=== PATIENT | female | born 1985 | race Caucasian/White ===

== ENCOUNTER 2024-06-02 10:58 | Emergency (ER) | payer BC, SELFPAY ==
[2024-06-02 11:04] VITALS: BP 112/64
[2024-06-02 12:14] VITALS: BMI 25.6
[2024-06-02 12:16] VITALS: BP 107/56
[2024-06-02 12:43] LABS: Hematocrit 31.1 % (37.0-47.0); Hemoglobin 11.3 g/dL (12.0-16.0); Mean Corp Hgb Conc. 36.3 g/dL (33.0-37.0); Mean Corpuscular Hgb 32.8 pg (27.0-31.0); Mean Corpuscular Volume 90.4 fL (81.0-99.0); Mean Platelet Volume 10.3 fL (7.4-10.4); Nucleated Red Blood Cells % 0 %; Platelet Count 142 10^3/uL (130-400); Red Blood Cell Count 3.44 10^6/uL (4.20-5.40); Red Cell Dist. Width 12.7 % (11.5-14.5); White Blood Cell Count 4.7 10^3/uL (4.8-10.8)
[2024-06-02 12:54] LABS: ALT (SGPT) 36 U/L (0-35); AST (SGOT) 41 U/L (14-36); Albumin 3.8 g/dl (3.5-5.0); Alkaline Phosphatase 59 U/L (38-126); Blood Urea Nitrogen 9 mg/dl (7-17); Calcium 8.7 mg/dl (8.4-10.2); Carbon Dioxide 22 mmol/L (22-30); Chloride 104 mmol/L (98-107); Estimated Creatinine Clearance 112 ml/min; Glucose 88 mg/dl (70-99); Potassium 3.8 mmol/L (3.5-5.1); Sodium 134 mmol/L (135-145); Total Bilirubin 0.3 mg/dl (0.2-1.3); Total Protein 6.4 g/dl (6.3-8.2); eGFR > 60.00
[2024-06-02] MEDS: NSS 1000 IV (13:01)
[2024-06-02] MEDS: BENADRYL 25 MG IV (13:02)
[2024-06-02] MEDS: REGLAN 10 MG IV (13:07)
[2024-06-02 13:31] LABS: COVID-19 Antigen Negative (Negative)
--- NOTE | 2024-06-02 13:45 | ED.GENMED ---
History of Present Illness
General
Chief Complaint: Headache
Source: patient
Time Seen by Provider: 06/02/24 12:25
History of Present Illness
History of Present Illness:
38-year-old female with past medical history of migraines presenting to the emergency department for evaluation of headache and generally feeling unwell since Tuesday of this past week. Patient states that symptoms seem to initially start as a
slight sore throat and she thought she was getting a mild viral infection but states symptoms did not seem to progress further with the cold. Headache then started to feel more like a tension type headache with pain in the frontal and posterior
portion of her scalp. She notes this feels different than her typical migraine which is usually right-sided and retro-orbital. She has been taking Tylenol and Benadryl with minimal to no relief. Patient does note that yesterday evening she had a
little bit of chills and also woke up around 4 AM feeling a little diaphoretic. Last dose of Tylenol was around 10 AM with minimal improvement. Patient was unaware of the low-grade fever that she had while in triage today and while back in her ER
room. No known sick contacts, recent travel or recent antibiotics. Of note patient is 13 weeks . She has already had her first trimester ultrasound with confirmed intrauterine .
Past History
Past History
ED Past Medical History: Other (Migraine headaches)
ED Past Surgical History: None
Social History
Tobacco: Non-smoker
Alcohol: None
Drug: None
Personal:
Living: with family
Employment: Employed
Review of Systems
Review of Systems
All Other Systems: ROS reviewed and negative except as documented in HPI and ROS
Phy Exam
Physical Exam
Physical Exam:
GENERAL: Alert , in no apparent distress
EYE: conjunctiva clear
NECK: Supple, no significant adenopathy.
ENT: o/p clr, mmm.
CARDIAC: Regular rate and rhythm
LUNGS: Clear breath sounds bilaterally, no acute respiratory distress, no wheezes/rales/rhonchi
NEUROLOGICAL: Alert and oriented
SKIN: Warm and dry, skin intact.
MUSCULOSKELETAL: well perfused.
PSYCH: Normal and appropriate interaction.
Scores
Heart Failure Risk
Heart Failure Risk Score: Not Applicable
Heart Score for Chest Pain Patients
STEMI patient?: Not applicable
Withdrawal Assessment of Alcohol
Withdrawal Assessment Completed?: Not applicable
Course
Orders/Labs/Results
Orders:
Orders
06/02/24 12:25
CMP [Comprehensive Metabolic Panel] Urgent
Complete Blood Count/With Diff Urgent
Manual Differential Urgent
Monotest Urgent
Comment: ADD ON
06/02/24 12:40
0.9% Sodium Chloride 1000 ml [Nss] 1,000 ml IV BOLUS
Diphenhydramine [Benadryl] 25 mg IV NOW STA
Metoclopramide [Reglan] 10 mg IV NOW STA
06/02/24 13:04
COVID-19 Antigen Urgent
Source: Nasal Swab
06/02/24 14:36
Acetaminophen 1000MG/100Ml [Ofirmev] 1,000 mg in 100 ml IV ONCE
Acetaminophen IV Indication:: ED Narcotic Naive Pt-ONCE
06/02/24 14:37
Add On- LAB Urgent
Tests Added?: monotest
Abnormal Lab Results
06/02/24
12:25
WBC 4.7 L 10^3/uL
(4.8-10.8)
RBC 3.44 L 10^6/uL
(4.20-5.40)
Hgb 11.3 L g/dL
(12.0-16.0)
Hct 31.1 L %
(37.0-47.0)
MCH 32.8 H pg
(27.0-31.0)
Band Neutrophils 7 H %
(0-3)
Sodium 134 L mmol/L
(135-145)
Creatinine 0.3 L mg/dL
(0.6-1.0)
AST 41 H U/L
(14-36)
ALT 36 H U/L
(0-35)
06/02/24 12:25
06/02/24 12:25
Vital Signs
Initial and Last Documented VS:
Initial Vital Signs
Temp Pulse Resp BP Pulse Ox
99.5 F 91 18 112/64 98
06/02/24 11:04 06/02/24 11:04 06/02/24 11:04 06/02/24 11:04 06/02/24 11:04
Last Documented Vital Signs
Temp Pulse Resp BP Pulse Ox
99.9 F 89 16 96/62 96
06/02/24 14:09 06/02/24 15:36 06/02/24 15:36 06/02/24 15:36 06/02/24 15:36
MDM/Problems Addressed
Differential Diagnosis Includes:
Viral syndrome, tension headache, migraine headache, no concern for preeclampsia/eclampsia given patient is at the beginning of her second trimester
MDM/Problems Addressed:
38-year-old female presenting to the emergency department for evaluation of persistent headache that has been constant since Tuesday. Unrelieved with her qxdg-tna-fgzpmbi Tylenol/Benadryl. Patient was given a prescription for Compazine by her
neurologist but yet to take this as she was concerned to take during . Low-grade fevers noted and I did repeat this while I was in room and it was 99.3 orally. Patient last took Tylenol around 10 AM so I do suspect that she likely did
have a fever earlier this morning. I suspect her symptoms are most likely related to a viral etiology. Will check labs and treat with fluids, Reglan, Benadryl and reassess following.
Chronic conditions affecting care: Neurological disorder (Migraine headache)
*Pulse Oximetry
Patient hypoxic: no
*Critical Care Note
Total Time (30-74mins, 75-104mins- exclusive of procedures): Not Applicable
Comment
Comment:
On reevaluation patient does note some mildly improved symptoms although headache still present. Given will order IV Ofirmev. She does have a mild leukopenia and very mild LFT elevation which likely signifies viral etiology. Monotest
added onto workup. COVID test noted to be negative. I still anticipate discharge home
Patient Management
Escalation/DeEscalation of care consider admission/obs:
Following Ofirmev patient notes that her symptoms are still present albeit improved from initial evaluation. Discussed other potential etiologies including a viral meningitis workup for this pain including lumbar puncture. I do not feel strongly
that this is the most likely diagnosis and patient declines lumbar puncture. Discussed return precautions to the ER as well as continued medications for relief at home. Again I reiterated to the patient that given her lab findings I am most
suspicious for a viral syndrome and that symptoms should likely be better in the coming days. Aware of return precautions. Patient is in agreement with this plan.
ED Attending Note
-
Portions of this chart may have been created with voice recognition software.� Occasional wrong word or��sound alike� substitutions may have occurred due to the inherent limitations of voice recognition software.
Discharge Plan
Departure
Patient Disposition: Home (Routine Discharge)
Date of Disposition: 06/02/24
Time of Disposition: 15:34
Patient with high blood pressure during this ER visit?: No
Discharge Problem:
Headache
Instructions: Headache, Adult (DC)
Prescriptions:
No Action
famotidine [Pepcid] 20 mg Tablet
20 mg PO BID
calcium carbonate 500 mg calcium (1,250 mg) Tablet,Chewable
500 mg PO BID PRN (Reason: heartburn)
prenat.vits,saud,qfk-hffz-fphit Tablet
1 tab PO DAILY
magnesium glycinate 100 mg Tablet
100 mg PO DAILY
Probiotic 3 billion cell Capsule
3,000 mmu cells PO DAILY
acetaminophen 325 mg Tablet
650 mg PO Q4HPRN PRN (Reason: mild pain) Qty: 0 0RF
ibuprofen 600 mg Tablet
600 mg PO Q6HPRN PRN (Reason: moderate pain/cramps) Qty: 0 0RF
Referrals:
Rupinder Meyer CRNP [Family Provider] -
Interventions
Interventions:
*Risk Screen - Suicide Last Done: 06/02/24 12:15
*General Assessment Last Done: 06/02/24 12:15
*Neglect/Abuse Screening Last Done: 06/02/24 12:15
*ED COVID-19 Vaccine History Last Done: 06/02/24 11:06
*Nursing Disposition Last Done: 06/02/24 15:52
ED- Neurological Assessment Last Done: 06/02/24 12:20
Discharge Date and Time
Discharge Date/Time: 06/02/24 15:53
Print Language: YORUBA
[2024-06-02 14:09] VITALS: BP 96/45
[2024-06-02 14:42] LABS: Absolute Neutrophils -Man Diff 2.3 10^3/uL (1.4-6.5); Atypical Lymphocytes 7 %; Band Neutrophils 7 % (0-3); Lymphocytes 38 % (20-51); Monocytes 5 % (2-9); Platelets Checked YES; Segmented Neutrophils 42 % (42-75)
[2024-06-02 14:43] LABS: Normal RBC Morphology Yes; Total Cells Counted 100
[2024-06-02 15:04] LABS: Monotest Negative (Negative)
[2024-06-02] MEDS: OFIRMEV 100 IV (15:05)
[2024-06-02 15:36] VITALS: BP 96/62
== END 2024-06-02 15:53 | disposition home or self-care (01) ==
LOC: EMR 10:58
PROVIDERS: Physician Assistant Medical; EMERGENCY PHYSICIAN Student in an Organized Health Care Education/Training Program; FAMILY PHYSICIAN Nurse Practitioner
DX: O99.351 Diseases of the nervous system complicating pregnancy, first trimester (principal); R51.9 Headache, unspecified; R50.9 Fever, unspecified; R61 Generalized hyperhidrosis; J02.9 Acute pharyngitis, unspecified; R68.83 Chills (without fever); Z3A.13 13 weeks gestation of pregnancy; Z11.52 Encounter for screening for COVID-19
CPT/HCPCS: 99284; 96374; 96375 ×2; 96361; 80053; 85025; 86308; 87811

== ENCOUNTER → 2024-06-05 09:01 | Outpatient (REF) | payer BC, SELFPAY | LOC: PNTC 09:01 | PROVIDERS: ATTENDING PHYSICIAN Obstetrics & Gynecology | DX: Z36.0 Encounter for antenatal screening for chromosomal anomalies (principal); Z36.82 Encounter for antenatal screening for nuchal translucency | CPT/HCPCS: 76801; 76813 ==

== ENCOUNTER → 2024-06-12 09:00 | Outpatient (REF) | payer BC, SELFPAY | LOC: RAD 09:00 | PROVIDERS: ATTENDING PHYSICIAN Obstetrics & Gynecology; FAMILY PHYSICIAN Nurse Practitioner | DX: O22.30 Deep phlebothrombosis in pregnancy, unspecified trimester (principal); I82.811 Embolism and thrombosis of superficial veins of right lower extremity | CPT/HCPCS: 93971 ==

== ENCOUNTER → 2024-09-15 08:27 | Outpatient (REF) | payer BC, SELFPAY | LOC: REG 08:27 | PROVIDERS: ATTENDING PHYSICIAN Obstetrics & Gynecology; FAMILY PHYSICIAN Nurse Practitioner | DX: Z32.01 Encounter for pregnancy test, result positive (principal) | CPT/HCPCS: 36415; 86850; 86900; 86901; J2790 ==

== ENCOUNTER 2024-10-17 15:26 | Observation (INO) | payer BC, SELFPAY ==
[2024-10-17 15:44] VITALS: BP 102/42; BMI 27.1
[2024-10-17 17:29] LABS: Urine Albumin Negative (Neg - Trace); Urine Bilirubin Negative (Negative); Urine Character Clear (Clear); Urine Color Yellow; Urine Glucose Negative (Negative); Urine Ketone 1+ (Negative); Urine Leukocyte Negative (Negative); Urine Nitrite Negative (Negative); Urine Occult Blood Negative (Negative); Urine Specific Gravity 1.005 (<1.030); Urine Urobilinogen Negative (Neg - 1+)
[2024-10-17] MEDS: BRETHINE 250 MCG SC (18:28)
[2024-10-17] MEDS: LR 1000 IV (18:28)
== END 2024-10-17 19:09 | disposition home or self-care (01) ==
LOC: LDRP 15:26
PROVIDERS: Student in an Organized Health Care Education/Training Program; ADMITTING PHYSICIAN Obstetrics & Gynecology
DX: O47.03 False labor before 37 completed weeks of gestation, third trimester (principal); R10.9 Unspecified abdominal pain; O09.523 Supervision of elderly multigravida, third trimester; Z3A.32 32 weeks gestation of pregnancy; O99.820 Streptococcus B carrier state complicating pregnancy; G25.81 Restless legs syndrome
CPT/HCPCS: 76819; 76805; 81003; G0378

== ENCOUNTER 2024-11-17 08:48 | Observation (INO) | payer BC, SELFPAY ==
[2024-11-17] MEDS: LR 1000 IV ×2 (09:05→10:16)
[2024-11-17 09:10] VITALS: BP 112/54; BMI 27.3
[2024-11-17] MEDS: ZOFRAN 4 MG IV (09:22)
[2024-11-17 09:27] LABS: Urine Albumin Trace (Neg - Trace); Urine Bilirubin Negative (Negative); Urine Character Clear (Clear); Urine Color Yellow; Urine Glucose Negative (Negative); Urine Ketone 1+ (Negative); Urine Leukocyte Trace (Negative); Urine Nitrite Negative (Negative); Urine Occult Blood Negative (Negative); Urine Urobilinogen Negative (Neg - 1+)
[2024-11-17 09:30] LABS: % Basophils 0.3 % (0-2); % Eosinophils 0.1 % (0-6); % Immature Granulocytes 1.1 % (0-0.5); % Lymphocytes 17.8 % (20.5-51.1); % Monocytes 2.7 % (1.7-9.3); Absolute Immature Granulocytes 0.1 10^3/uL (0-0.05); Absolute Lymphocytes 1.7 10^3/uL (1.2-3.4); Absolute Monocytes 0.3 10^3/uL (0.1-0.6); Absolute Neutrophils 7.3 10^3/uL (1.4-6.5); Hematocrit 33.3 % (37.0-47.0); Hemoglobin 11.8 g/dL (12.0-16.0); Mean Corp Hgb Conc. 35.4 g/dL (33.0-37.0); Mean Corpuscular Hgb 33.4 pg (27.0-31.0); Mean Corpuscular Volume 94.3 fL (81.0-99.0); Nucleated Red Blood Cells % 0 %; Platelet Count 121 10^3/uL (130-400); Red Blood Cell Count 3.53 10^6/uL (4.20-5.40); Red Cell Dist. Width 13.9 % (11.5-14.5); White Blood Cell Count 9.3 10^3/uL (4.8-10.8)
[2024-11-17 09:38] LABS: ALT (SGPT) 25 U/L (0-35); AST (SGOT) 25 U/L (14-36); Albumin 3.6 g/dl (3.5-5.0); Alkaline Phosphatase 116 U/L (38-126); Blood Urea Nitrogen 15 mg/dl (7-17); Carbon Dioxide 18 mmol/L (22-30); Chloride 106 mmol/L (98-107); Estimated Creatinine Clearance > 125 ml/min; Glucose 96 mg/dl (70-99); Potassium 3.8 mmol/L (3.5-5.1); Sodium 133 mmol/L (135-145); Total Bilirubin 0.4 mg/dl (0.2-1.3); Total Protein 6.5 g/dl (6.3-8.2); eGFR > 60.00
[2024-11-17 09:43] LABS: Urine Mucus Few; Urine Squamous Cell >30 /LPF (Few)
[2024-11-17 09:44] LABS: Urine Bacteria Few (Negative); Urine Red Blood Cell 0-2 /HPF (0-2)
== END 2024-11-17 13:16 | disposition home or self-care (01) ==
LOC: LDRP 08:48
PROVIDERS: ADMITTING PHYSICIAN Obstetrics & Gynecology
DX: O99.613 Diseases of the digestive system complicating pregnancy, third trimester (principal); K52.9 Noninfective gastroenteritis and colitis, unspecified; Z3A.36 36 weeks gestation of pregnancy
CPT/HCPCS: 80053; 81003; 81015; 85025; 86850; 86870; 86900; 86901; 87086; G0378

== ENCOUNTER 2024-12-11 19:43 | Inpatient (IN) | payer BC, SELFPAY ==
[2024-12-11 19:54] VITALS: BMI 27.8
[2024-12-11 20:19] VITALS: BP 120/73
[2024-12-11] MEDS: LR 1000 IV ×2 (21:00→23:46)
[2024-12-11] MEDS: PENICILLIN 110 UNITS IV (21:10)
[2024-12-11 21:15] LABS: Hematocrit 31.2 % (37.0-47.0); Hemoglobin 11.2 g/dL (12.0-16.0); Mean Corp Hgb Conc. 35.9 g/dL (33.0-37.0); Mean Corpuscular Hgb 33.8 pg (27.0-31.0); Mean Corpuscular Volume 94.3 fL (81.0-99.0); Red Blood Cell Count 3.31 10^6/uL (4.20-5.40); Red Cell Dist. Width 13.2 % (11.5-14.5); White Blood Cell Count 9.2 10^3/uL (4.8-10.8)
[2024-12-11] MEDS: PEPCID 40 MG PO (21:44)
[2024-12-11] MEDS: TUMS CHEWABLE TABLET 400 MG PO (21:45)
[2024-12-11 21:46] LABS: % Basophils 0.3 % (0-2); % Eosinophils 0.8 % (0-6); % Immature Granulocytes 0.4 % (0-0.5); % Lymphocytes 33.3 % (20.5-51.1); % Monocytes 5.2 % (1.7-9.3); Absolute Eosinophils 0.1 10^3/uL (0-0.7); Absolute Lymphocytes 3.1 10^3/uL (1.2-3.4); Absolute Monocytes 0.5 10^3/uL (0.1-0.6); Absolute Neutrophils 5.5 10^3/uL (1.4-6.5); Mean Platelet Volume 11.9 fL (7.4-10.4); Nucleated Red Blood Cells % 0 %; Platelet Count 97 10^3/uL (130-400)
[2024-12-12] MEDS: PITOCIN 30 UNITS/NSS 500 ML IV ×2 (00:29→02:46)
[2024-12-12] MEDS: PENICILLIN 55 UNITS IV (00:54)
[2024-12-12] MEDS: SUBLIMAZE 100 MCG EPIDURAL (02:05)
[2024-12-12 02:29] LABS: % Basophils 0.3 % (0-2); % Eosinophils 0.8 % (0-6); % Immature Granulocytes 0.5 % (0-0.5); % Lymphocytes 40.2 % (20.5-51.1); % Monocytes 5.3 % (1.7-9.3); % Neutrophils 52.9 % (42.2-75.2); Absolute Eosinophils 0.1 10^3/uL (0-0.7); Absolute Immature Granulocytes 0.1 10^3/uL (0-0.05); Absolute Lymphocytes 4.5 10^3/uL (1.2-3.4); Absolute Monocytes 0.6 10^3/uL (0.1-0.6); Absolute Neutrophils 5.9 10^3/uL (1.4-6.5); Hematocrit 30.7 % (37.0-47.0); Hemoglobin 10.7 g/dL (12.0-16.0); Mean Corp Hgb Conc. 34.9 g/dL (33.0-37.0); Mean Corpuscular Hgb 33.9 pg (27.0-31.0); Mean Corpuscular Volume 97.2 fL (81.0-99.0); Mean Platelet Volume 12.5 fL (7.4-10.4); Nucleated Red Blood Cells % 0 %; Platelet Count 103 10^3/uL (130-400); Red Blood Cell Count 3.16 10^6/uL (4.20-5.40); Red Cell Dist. Width 13.2 % (11.5-14.5); White Blood Cell Count 11.2 10^3/uL (4.8-10.8)
[2024-12-12] MEDS: MOTRIN 600 MG PO ×4 (04:23→23:43)
--- NOTE | 2024-12-12 04:34 | DOWNTIME ---
There was a [employer] Client [employer]st Downtime on 12/12/2024 from 0100 to 12/12/2023 at 0205 . Downtime documentation of patient's care, including medication administrations, has been reconciled in the electronic record per guidelines. Refer to the
patient's paper chart under the miscellaneous tab to see printed paper medication records and downtime forms.
[2024-12-12] MEDS: TYLENOL 650 MG PO ×4 (06:20→23:44)
[2024-12-12] MEDS: SENOKOT-S 1 TABLET PO (15:31)
[2024-12-12] MEDS: PEPCID PO (22:42)
[2024-12-13] MEDS: TYLENOL 650 MG PO ×3 (05:59→17:51)
[2024-12-13] MEDS: MOTRIN 600 MG PO ×4 (06:00→23:38)
[2024-12-13 06:08] LABS: Hematocrit 27.2 % (37.0-47.0); Hemoglobin 9.4 g/dL (12.0-16.0)
[2024-12-13] MEDS: SENOKOT-S 1 TABLET PO (15:45)
[2024-12-13] MEDS: PEPCID 40 MG PO (23:43)
[2024-12-14] MEDS: MOTRIN 600 MG PO (06:05)
[2024-12-14 15:06] LABS: Syphilis/T. pallidum Ab Reflex Negative (Negative)
== END 2024-12-14 11:04 | disposition home or self-care (01) | DRG 807 ==
LOC: LDRP 19:43
PROVIDERS: ADMITTING PHYSICIAN Obstetrics & Gynecology; FAMILY PHYSICIAN Nurse Practitioner
PROC: 0KQM0ZZ Repair Perineum Muscle, Open Approach (ICD-10-PCS; 2024-12-12)
PROC: 10E0XZZ Delivery of Products of Conception, External Approach (ICD-10-PCS; 2024-12-12)
DX: O48.0 Post-term pregnancy (principal); Z37.0 Single live birth; O26.893 Other specified pregnancy related conditions, third trimester; Z67.41 Type O blood, Rh negative; Z3A.40 40 weeks gestation of pregnancy; O69.81X0 Labor and delivery complicated by cord around neck, without compression, not applicable or unspecified; O70.1 Second degree perineal laceration during delivery; O99.824 Streptococcus B carrier state complicating childbirth
CPT/HCPCS: 85014; 85018; 85025; 86780; 86850; 86900; 86901

== ENCOUNTER 2025-04-18 17:17 | Day surgery (SDC) | payer BC, SELFPAY ==
[2025-04-18] VITALS (12 sets, daily range): BP systolic 92–139; BP diastolic 26–92; BMI 26.1
[2025-04-18] MEDS: MORPHINE SULFATE 2 MG IV (13:12)
[2025-04-18] MEDS: NSS 1000 IV ×2 (13:12→19:20)
[2025-04-18] MEDS: ZOFRAN 4 MG IV (13:12)
[2025-04-18 13:21] LABS: % Basophils 0.4 % (0-2); % Eosinophils 0.4 % (0-6); % Immature Granulocytes 0.2 % (0-0.5); % Lymphocytes 25.9 % (20.5-51.1); % Monocytes 4.8 % (1.7-9.3); % Neutrophils 68.3 % (42.2-75.2); Absolute Basophils 0.1 10^3/uL (0-0.2); Absolute Eosinophils 0.1 10^3/uL (0-0.7); Absolute Lymphocytes 3.2 10^3/uL (1.2-3.4); Absolute Monocytes 0.6 10^3/uL (0.1-0.6); Absolute Neutrophils 8.4 10^3/uL (1.4-6.5); Hematocrit 37.3 % (37.0-47.0); Hemoglobin 12.7 g/dL (12.0-16.0); Mean Corpuscular Hgb 31.9 pg (27.0-31.0); Mean Corpuscular Volume 93.7 fL (81.0-99.0); Mean Platelet Volume 10.9 fL (7.4-10.4); Nucleated Red Blood Cells % 0 %; Platelet Count 202 10^3/uL (130-400); Red Blood Cell Count 3.98 10^6/uL (4.20-5.40); Red Cell Dist. Width 13.5 % (11.5-14.5); White Blood Cell Count 12.3 10^3/uL (4.8-10.8)
[2025-04-18 13:52] LABS: HCG, Serum Qualitative Screen Negative
[2025-04-18 13:54] LABS: ALT (SGPT) 20 U/L (0-35); AST (SGOT) 19 U/L (14-36); Albumin 4.5 g/dl (3.5-5.0); Alkaline Phosphatase 43 U/L (38-126); Blood Urea Nitrogen 11 mg/dl (7-17); Calcium 9.2 mg/dl (8.4-10.2); Carbon Dioxide 29 mmol/L (22-30); Chloride 107 mmol/L (98-107); Estimated Creatinine Clearance 111 ml/min; Glucose 95 mg/dl (70-99); Lipase 52 U/L (23-300); Sodium 141 mmol/L (135-145); Total Bilirubin 0.7 mg/dl (0.2-1.3); Total Protein 7.3 g/dl (6.3-8.2); eGFR > 60.00
--- NOTE | 2025-04-18 14:04 | ED.GENMED ---
History of Present Illness
General
Chief Complaint: Abdominal Pain
Source: patient
Exam Limitations: none
Time Seen by Provider: 04/18/25 12:16
Nursing documentation reviewed up to this point in time: agreed with
History of Present Illness
History of Present Illness:
pt is a 39 y/o F with migraines
here with abd pain starting gradually yesterday
had diarrhea
felt she had some bloating and gas and pain in the upper abd which has moved to the RLQ and has been constnat
worse with movement
feels like she cannot pass gas normally or belch
forced herself to eat some toast this morning 9 am
nauesa/lack of appetite
no urine sypmtoms
no fever
no bloody stool
Past History
Past History
ED Past Medical History: Other (Migraine headaches)
ED Past Surgical History: None
Social History
Tobacco: Non-smoker
Alcohol: None
Drug: None
Personal:
Living: with family
Employment: Employed
Phy Exam
Physical Exam
Physical Exam:
GENERAL: Alert , in no apparent distress
EYE: pupils equal and reactive
NECK: Supple
ENT: o/p clr, mmm.
CARDIAC: Regular rate and rhythm .
LUNGS: Clear breath sounds bilaterally, no acute respiratory distress, no wheezes/rales/rhonchi
ABDOMEN: Soft, moderate right lower quadrant tenderness, rosvig's positive, no r/g, no cvat, normal bowel sounds
NEUROLOGICAL: Alert and oriented, no focal neuro deficits
SKIN: Warm and dry, skin intact.
MUSCULOSKELETAL: No edema, well perfused.
PSYCH: Normal and appropriate interaction.
Course
Orders/Labs/Results
Orders:
Orders
04/18/25 13:01
CT Abd/Pel (IV only)-DH only Urgent
Comment:
Reason For Exam: RLQ pain, evla appe
0.9% Sodium Chloride 1000 ml [Nss] 1,000 ml IV BOLUS
Morphine Sulfate 2 mg IV NOW STA
Ondansetron Injectable [Zofran] 4 mg IV NOW STA
Test Result ONCE
04/18/25 13:04
Complete Blood Count/With Diff Urgent
Comprehensive Metabolic Panel Urgent
HCG, Serum Qualitative Screen Urgent
Lipase Urgent
04/18/25 14:23
Urinalysis Reflex To Culture Urgent
Date Specimen was Collected: 04/18/25
Time Specimen was Collected: 14:21
Abnormal Lab Results
04/18/25
13:04
WBC 12.3 H 10^3/uL
(4.8-10.8)
RBC 3.98 L 10^6/uL
(4.20-5.40)
MCH 31.9 H pg
(27.0-31.0)
MPV 10.9 H fL
(7.4-10.4)
Absolute Neuts (auto) 8.4 H 10^3/uL
(1.4-6.5)
Creatinine 0.5 L mg/dL
(0.6-1.0)
04/18/25 13:04
04/18/25 13:04
Vital Signs
Initial and Last Documented VS:
Initial Vital Signs
Temp Pulse Resp BP Pulse Ox
37.1 C 105 16 139/81 98
04/18/25 11:52 04/18/25 11:52 04/18/25 11:52 04/18/25 11:52 04/18/25 11:52
Last Documented Vital Signs
Temp Pulse Resp BP Pulse Ox
37.1 C 90 20 101/64 100
04/18/25 11:52 04/18/25 15:54 04/18/25 15:54 04/18/25 13:16 04/18/25 15:54
MDM/Problems Addressed
Differential Diagnosis Includes:
appendicitis, consitpation, ileus, divertic, ovarian cyst
MDM/Problems Addressed:
39 y/o F
RLQ pain bloating
no fever/chills
tender RLQ with mild vountary guarding, no rebound
concerning for appendicitis
pending CT scan
ED Attending Note
-
Portions of this chart may have been created with voice recognition software.� Occasional wrong word or��sound alike� substitutions may have occurred due to the inherent limitations of voice recognition software.
Discharge Plan
Departure
Prescriptions:
No Action
famotidine [Pepcid] 20 mg Tablet
40 mg PO QHS
prenat.vits,saud,kak-lztw-keckr Tablet
1 tab PO DAILY
magnesium glycinate 100 mg Tablet
400 mg PO QHS
iron bisglycinate chelate
40.5 mg PO DAILY
choline 250 mg Tablet
250 mg PO DAILY
ibuprofen 600 mg Tablet
600 mg PO Q6HPRN PRN (Reason: moderate pain/cramps) Qty: 0 0RF
acetaminophen 325 mg Tablet
650 mg PO Q4HPRN PRN (Reason: mild pain) Qty: 0 0RF
Referrals:
Rupinder Meyer CRNP [Family Provider, Family Practice]
Interventions
Interventions:
*Risk Screen - Suicide Last Done: 04/18/25 11:52
*General Assessment Last Done: 04/18/25 13:06
*Neglect/Abuse Screening Last Done: 04/18/25 11:52
*ED- Fall Risk Assessment Last Done: 04/18/25 11:58
*ED COVID-19 Vaccine History Last Done: 04/18/25 11:58
WC-Hjgqru-Hmqumjkpfg Assessment Last Done: 04/18/25 13:05
Discharge Date and Time
Print Language: LITHUANIAN
[2025-04-18 14:59] LABS: Urine Albumin Negative (Neg - Trace); Urine Bilirubin Negative (Negative); Urine Character Clear (Clear); Urine Color Yellow; Urine Glucose Negative (Negative); Urine Ketone Negative (Negative); Urine Leukocyte Negative (Negative); Urine Nitrite Negative (Negative); Urine Occult Blood Negative (Negative); Urine Specific Gravity 1.005 (<1.030); Urine Urobilinogen Negative (Neg - 1+); Urine pH 6.5 (5.0-9.0)
--- NOTE | 2025-04-18 16:58 | HP.FOC2 ---
Focused History & Physical
Chief Complaint
HPI:
Chief Complaint: Abdominal pain
HPI / Indication for Planned Procedure: Patient is a 39-year-old female who developed the acute onset of abdominal discomfort yesterday morning which increased in severity and began localizing to the suprapubic and right lower quadrant. She has had
associated nausea and mild anorexia but no vomiting. Last bowel movement today semiformed. No fevers chills or sweats. No similar episodes in the past.
Relevant Past Medical History: Other (GERD)
Relevant Social History: Negative
Relevant Family History: Negative
Relevant Past Surgical History: Negative
Review of Systems
Review of Pertinent Systems: All Systems Negative
Medication
See Medication form for detailed medications: Yes
Medication List (including Herbals & OTC):
famotidine 20 mg tablet (Pepcid) 40 mg PO QHS Gastrointestinal issue 02/24/23
magnesium glycinate 100 mg (as glycinate) tablet 400 mg PO QHS Supplement 02/24/23
prenat.vits,saud,nuw-icbm-xolux 1 tab PO DAILY Supplement 02/24/23
choline 250 mg tablet 250 mg PO DAILY 12/11/24
iron bisglycinate chelate 40.5 mg PO DAILY 12/11/24
acetaminophen 325 mg tablet 650 mg (2 x 325 mg) PO Q4HPRN PRN mild pain #0 tabs 12/13/24
ibuprofen 600 mg tablet 600 mg PO Q6HPRN PRN moderate pain/cramps #0 tabs 12/13/24
Medications Reviewed: Yes
Allergies and Reactions
Patient has Allergies: No
Noted Allergies and Reactions:
Allergy/AdvReac Type Severity Reaction Status Date / Time
No Known Allergies Allergy Verified 04/18/25 11:55
Pertinent Physical Exam
All Other Systems: Negative
Head/Neck: Normal
Lungs: Normal
Heart: Normal
Abdomen: Other (Soft, nondistended, tenderness to palpation localized in the right lower quadrant with voluntary guarding)
Extremities: Normal
Neurological: Normal
Diagnosis / Assessment
Assessment: 39-year-old female with acute appendicitis.
Reviewed with patient history, examination and CT imaging consistent with acute appendicitis. Discussed both operative and nonoperative management options and associated risks/benefits of approaches. Patient is in agreement to proceed with
appendectomy.
Laparoscopic appendectomy reviewed in detail with the patient. Discussed operative technique utilizing diagrams or drawings, alternative management options, benefits and potential risks such as but not limited to bleeding, infectious or wound
healing complications, iatrogenic injury to surrounding viscera. Discussed the typical postoperative recovery pending operative findings.
Any of the patient's concerns or questions were fully addressed and informed consent was obtained.
Plan: OR for laparoscopic appendectomy.
Empiric antibiotic coverage with Zosyn initiated in the emergency department.
Nothing by mouth, IV fluid hydration and supportive care awaiting operative room availability.
SCDs for DVT prophylaxis
Plan / Procedure
Laparoscopic appendectomy
Anesthesia/Sedation to be done by Anesthesia Provider: Yes
[2025-04-18] MEDS: ZOSYN 50 IV ×2 (16:59→21:07)
--- NOTE | 2025-04-18 17:01 | W.SUR.PREOP ---
Pre-Operative Surgical Note
-
I have examined this patient prior to the performance of the scheduled procedure.
The patient's condition is unchanged from the time of the current History and
Physical and the patient is able to undergo the scheduled procedure.
--- NOTE | 2025-04-18 18:16 | W.IMMPOSTOP ---
Addendum entered and electronically signed by Nate Perkins MD 04/18/25 18:25:
#[id number]
Original Note:
Surgical Immed Post Op Note
-
Primary Surgeon: Nate Perkins MD
Assisting Surgeon: None
Pre-op Diagnosis: Acute appendicitis
Post-op Diagnosis: Acute appendicitis
Procedure Performed: Laparoscopic appendectomy
Anesthesia Type: GETA +0.25% Marcaine
Specimen / Cultures: Appendix
Estimated Blood Loss: 8 mL
Complications: None immediate
Operative Findings: Acutely inflamed appendix with some fibrinous exudate. No perforation, no abscess, no significant purulence. No disruption of appendix with appendectomy.
Plan: Continue Zosyn overnight, okay for dietary intake as tolerated postoperatively
Probable DC home tomorrow
Updated patient's via phone call postoperatively
[2025-04-18] MEDS: DILAUDID 0.25 MG IV ×2 (18:37→19:19)
--- NOTE | 2025-04-18 20:50 | PTCARENOTE ---
19:30 pt rec'vd from PACU aaox3, Ivf infusing via lac, pain 01/19 , w pacu nurse observed incision sites 4 lap sites DCI. Pts at the bedside, oriented to unit.
[2025-04-18] MEDS: MOTRIN 400 MG PO (21:12)
[2025-04-18] MEDS: COMPAZINE 5 MG IV (23:51)
[2025-04-19] MEDS: ZOSYN 50 IV ×2 (04:08→09:16)
[2025-04-19] MEDS: NSS 1000 IV (04:56)
[2025-04-19 07:03] VITALS: BP 100/55
[2025-04-19] MEDS: MOTRIN 400 MG PO ×2 (07:56→13:35)
[2025-04-19] MEDS: PROTONIX 40 MG PO (07:56)
--- NOTE | 2025-04-19 08:01 | W.PN.GS2 ---
Addendum entered and electronically signed by Nate Perkins MD 04/19/25 09:34:
pt seen and examined in follow up with RN WOUND CARE
feeling well
ordered breakfast
pain controlled
AFVSS
ABD: soft, ND, incisional tenderness, incisions with glue dressings
A/P: POD#1 s/p lap appy
d/c home
Original Note:
Today's Communication / Plan
-
dispo planning
Assessment / Plan
-
39 yo female who presented with appendicitis now POD #1 lap appi
Mild leukocytosis, expected
Passing flatus, no n/v
Vitals pending for this morning, afebrile with mild tachycardia last night
--OOB ambulate, ok to shower
--Analgesics as needed
--Regular diet as tolerated
--Tentative d/c later today if tolerating diet
Subjective Data
-
Date of Service: April 19, 2025
Patient seen and examined at bedside. Denies n/v Passing flatus. Some abdominal soreness and shoulder pain.
Objective Data
-
Intake and Output
04/18/25 04/19/25 04/20/25
06:59 06:59 06:59
Intake Total 2150 / 2150
Output Total 800 / 800
Balance 1350 / 1350
Intake:
Oral fluids 480 / 480
IV fluids (Total) 1570 / 1570
Normosol 250 / 250
IV piggybacks 100 / 100
Output:
Urine, Voided 800 / 800
Vital Signs
Temp Pulse Resp BP Pulse Ox
98.0 F 101 16 92/57 97
04/18/25 23:00 04/18/25 23:00 04/18/25 23:00 04/18/25 23:00 04/18/25 23:00
Lab Results
04/18/25 13:04
04/18/25 13:04
Calcium 9.2 mg/dl (8.4-10.2) 04/18/25 13:04
Total Bilirubin 0.7 mg/dl (0.2-1.3) 04/18/25 13:04
AST 19 U/L (14-36) 04/18/25 13:04
ALT 20 U/L (0-35) 04/18/25 13:04
Alkaline Phosphatase 43 U/L (38-126) 04/18/25 13:04
Total Protein 7.3 g/dl (6.3-8.2) 04/18/25 13:04
Albumin 4.5 g/dl (3.5-5.0) 04/18/25 13:04
Physical Exam
-
NAD
ABD soft, minimal incisional tenderness, ND
Incisions with intact glue, no erythema
Patient has a thompson catheter: No
Patient has a central line: No
--- NOTE | 2025-04-19 10:08 | W.DS.TRANS ---
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
-
Discharge Instructions:
Discharge Diagnosis/Procedures Acute appendicitis. Laparoscopic appendectomy
Diet As tolerated,Regular
Additional Diets Smaller meals initially after surgery as
abdominal bloating and distention are common for
the first few days
Activity No strenuous activity
Additional Activity Avoid lifting over 20 pounds for 2 to 3 weeks
postoperatively.
Driving Restrictions No driving for 24 hours
Bathing Restrictions OK to Shower
Wound Care Glue at surgical sites typically peels off in 2
to 3 weeks
Instructions:
Stand-Alone Forms:
Changes to Home Medications: No
Discharge Medications:
DC Medications w/original date entered in [employer]
ibuprofen 200 mg tablet (Advil) 400 mg PO Q8HPRN PRN mild pain 04/18/25
magnesium glycinate 100 mg (as glycinate) tablet 100 mg PO HS 04/18/25
rimegepant 75 mg disintegrating tablet (Nurtec ODT) 75 mg PO DAILYPRN PRN mirgraines 04/18/25
simethicone 80 mg chewable tablet 160 mg PO HSPRN PRN gas pains 04/18/25
acetaminophen 325 mg tablet 650 mg (2 x 325 mg) PO Q4HPRN PRN mild pain #1 tab 04/19/25
oxycodone 5 mg tablet 5 mg PO Q4HPRN PRN breakthrough/severe pain #5 tabs 04/19/25
Home Medication Changes
Pending Results: No
--- NOTE | 2025-04-19 10:24 | CM ---
CM reviewed medical records. CM met with patient in room. Patient confirmed demographics. Patient is independent with all needs.
PLAN: home no needs.
[2025-04-19 11:00] VITALS: BP 101/63
== END 2025-04-19 14:01 | disposition home or self-care (01) ==
LOC: SDS 17:17
PROVIDERS: Physician Assistant; ATTENDING PHYSICIAN Surgery; EMERGENCY PHYSICIAN Student in an Organized Health Care Education/Training Program; FAMILY PHYSICIAN Nurse Practitioner
DX: K35.80 Unspecified acute appendicitis (principal)
CPT/HCPCS: 44970; 88304; 74177; 80053; 81003; 83690; 84703; 85025; 96361; 96365; 96375; 99284; Q9967

== ENCOUNTER → 2025-05-04 08:56 | Outpatient (REF) | payer BC, SELFPAY ==
[2025-05-04 09:58] LABS: % Basophils 0.5 % (0-2); % Eosinophils 1.4 % (0-6); % Immature Granulocytes 0.2 % (0-0.5); % Lymphocytes 49.3 % (20.5-51.1); % Monocytes 5.2 % (1.7-9.3); % Neutrophils 43.4 % (42.2-75.2); Absolute Eosinophils 0.1 10^3/uL (0-0.7); Absolute Lymphocytes 2.9 10^3/uL (1.2-3.4); Absolute Monocytes 0.3 10^3/uL (0.1-0.6); Absolute Neutrophils 2.5 10^3/uL (1.4-6.5); Hematocrit 36.9 % (37.0-47.0); Hemoglobin 12.6 g/dL (12.0-16.0); Mean Corp Hgb Conc. 34.1 g/dL (33.0-37.0); Mean Corpuscular Hgb 31.7 pg (27.0-31.0); Mean Corpuscular Volume 92.9 fL (81.0-99.0); Mean Platelet Volume 10.8 fL (7.4-10.4); Nucleated Red Blood Cells % 0 %; Platelet Count 221 10^3/uL (130-400); Red Blood Cell Count 3.97 10^6/uL (4.20-5.40); White Blood Cell Count 5.8 10^3/uL (4.8-10.8)
[2025-05-04 10:06] LABS: Blood Urea Nitrogen 16 mg/dl (7-17); Calcium 9.1 mg/dl (8.4-10.2); Carbon Dioxide 25 mmol/L (22-30); Chloride 109 mmol/L (98-107); Glucose 90 mg/dl (70-99); Potassium 4.9 mmol/L (3.5-5.1); Sodium 140 mmol/L (135-145); eGFR > 60.00
[2025-05-04 11:06] LABS: Ferritin 21.9 ng/ml (6.24-137)
[2025-05-04 11:43] LABS: Vitamin B12 363 pg/ml (239-931)
== END ==
LOC: REG 08:56
PROVIDERS: ATTENDING PHYSICIAN Psychiatry & Neurology Neurology; FAMILY PHYSICIAN Nurse Practitioner; REFERRING PHYSICIAN Surgery
DX: E53.8 Deficiency of other specified B group vitamins (principal); R79.0 Abnormal level of blood mineral; Z90.49 Acquired absence of other specified parts of digestive tract
CPT/HCPCS: 36415; 80048; 82607; 82728; 82746; 85025

== ENCOUNTER → 2025-05-10 14:30 | Outpatient (REF) | payer BC, SELFPAY | LOC: RAD 14:30 | PROVIDERS: ATTENDING PHYSICIAN Surgery; FAMILY PHYSICIAN Nurse Practitioner | DX: Z09 Encounter for follow-up examination after completed treatment for conditions other than malignant neoplasm (principal); R10.84 Generalized abdominal pain; Z90.49 Acquired absence of other specified parts of digestive tract; R11.0 Nausea | CPT/HCPCS: 74177; Q9967 ==

== ENCOUNTER → 2025-07-18 13:54 | Outpatient (REF) | payer BC, SELFPAY | LOC: HWRAD 13:54 | PROVIDERS: ATTENDING PHYSICIAN Nurse Practitioner Family; FAMILY PHYSICIAN Nurse Practitioner | DX: R10.2 Pelvic and perineal pain (principal) | CPT/HCPCS: 76830; 76856 ==

== ENCOUNTER 2025-11-11 09:44 | Outpatient (RCR) | payer BC, SELFPAY ==
[2025-10-25 10:09] VITALS: BP 123/56
[2025-10-25] MEDS: NSS 250 IV (10:26)
[2025-10-25] MEDS: VENOFER 110 MG IV (10:27)
[2025-10-31] MEDS: NSS 250 IV (10:26)
[2025-10-31] MEDS: VENOFER 110 MG IV (10:27)
[2025-10-31 10:34] VITALS: BP 104/48
[2025-11-05 10:19] VITALS: BP 104/57
[2025-11-05] MEDS: NSS 250 IV (10:36)
[2025-11-05] MEDS: VENOFER 110 MG IV (10:37)
[2025-11-05 12:00] VITALS: BP 101/60
[2025-11-07] MEDS: NSS 250 IV (09:00)
[2025-11-07] MEDS: VENOFER 110 MG IV (09:01)
[2025-11-07 09:07] VITALS: BP 94/54
[2025-11-07 10:30] VITALS: BP 109/68
[2025-11-11 10:05] VITALS: BP 114/64
[2025-11-11] MEDS: NSS 250 IV (10:29)
[2025-11-11] MEDS: VENOFER 110 MG IV (10:29)
[2025-11-11 11:53] VITALS: BP 107/53
[2025-11-14 01:38] LABS: Estradiol, Serum 91.6 pg/mL; Estrogens, Total 153.9 pg/mL
== END 2025-11-12 09:02 | disposition home or self-care (01) ==
LOC: OID 09:44
PROVIDERS: ATTENDING PHYSICIAN Psychiatry & Neurology Neurology; FAMILY PHYSICIAN Nurse Practitioner; REFERRING PHYSICIAN Nurse Practitioner
DX: R79.0 Abnormal level of blood mineral (principal); E53.8 Deficiency of other specified B group vitamins; F32.81 Premenstrual dysphoric disorder
CPT/HCPCS: 36415; 82671; 84144; 96360; 96361; 96365; J1756